=== PATIENT | female | born 1965 | race Caucasian/White ===

== ENCOUNTER 2018-06-24 08:15 | Emergency (ER) | payer OTHER ==
[2018-06-24 09:21] LABS: Absolute Lymphocytes (CBC) 4.2 K/uL (0.7-4.9); Absolute Monocytes 1.2 K/uL (0.1-1.3); Basophils % 0.5 % (0-1.3); Eosinophils % 0.3 % (0-4.4); Lymphocytes % 22.6 % (15.3-44.8); MPV 9.5 fL (7.6-11.3); Monocytes % 6.4 % (3.3-12.3); RBC Red Blood Cell Count 4.46 M/uL (3.86-4.86)
[2018-06-24] MEDS ORDERED: VANCOMYCIN 1 GM/250 ML BAG ONE (09:25)
[2018-06-24] MEDS ORDERED: CEFTRIAXONE/SWI 1gm 1 GM/10 ML SYR ONE (09:25)
[2018-06-24 09:44] LABS: Potassium 3.4 mmol/L (3.5-5.1)
--- NOTE | 2018-06-24 11:01 | EDPHYS ---
Physician Documentation [facility] Name: Mary Villarreal Age: 52 yrs Sex: Female : 1965 Arrival Date: 06/24/2018 Time: 08:21 Bed 15 Private MD: ED Physician Miko Briggs HPI: 06/24 10:33 This 52 yrs old Female presents to ER via Ambulatory with complaints of Eye gs Swelling, Redness of Eye. 10:33 The patient is experiencing pain, redness. Onset: The symptoms/episode began/occurred 4 gs day(s) ago, and became worse. Duration: the symptoms are continuous. Aggravated by blinking. Associated signs and symptoms: Pertinent negatives: fever. Severity of symptoms: At their worst the symptoms were severe in the emergency department the symptoms are unchanged. 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 - Social history:: Smoking status: Patient/guardian denies using tobacco. - Ebola Screening: : Patient negative for fever greater than or equal to 101.5 degrees Fahrenheit, and additional compatible Ebola Virus Disease symptoms Patient denies exposure to infectious person Patient denies travel to an Ebola-affected area in the 21 days before illness onset No symptoms or risks identified at this time. ROS: 10:33 All other systems are negative. gs Exam: 10:33 ENT: Nares patent. No nasal discharge, no septal abnormalities noted. Tympanic gs membranes are normal and external auditory canals are clear. Oropharynx with no redness, swelling, or masses, exudates, or evidence of obstruction, uvula midline. Mucous membranes moist. Neck: Trachea midline, no thyromegaly or masses palpated, and no cervical lymphadenopathy. Supple, full range of motion without nuchal rigidity, or vertebral point tenderness. No Meningismus. Chest/axilla: Normal chest wall appearance and motion. Nontender with no deformity. No lesions are appreciated. Respiratory: Lungs have equal breath sounds bilaterally, clear to auscultation and percussion. No rales, rhonchi or wheezes noted. No increased work of breathing, no retractions or nasal flaring. Abdomen/GI: Soft, non-tender, with normal bowel sounds. No distension or tympany. No guarding or rebound. No evidence of tenderness throughout. Back: No spinal tenderness. No costovertebral tenderness. Full range of motion. Skin: Warm, dry with normal turgor. Normal color with no rashes, no lesions, and no evidence of cellulitis. MS/ Extremity: Pulses equal, no cyanosis. Neurovascular intact. Full, normal range of motion. Neuro: Awake and alert, GCS 15, oriented to person, place, time, and situation. Cranial nerves II-XII grossly intact. Motor strength 5/5 in all extremities. Sensory grossly intact. Cerebellar exam normal. Normal gait. 10:33 Constitutional: The patient appears alert, awake. 10:33 Head/face: Noted is swelling, that is moderate, of the left eye. 10:33 Eyes: Periorbital structures: cellulitis, erythema, swelling, that is marked, on the left supraorbital ridge, left upper eyelid, medial canthus of left eye, lateral canthus of left eye and left lower eyelid, Conjunctiva: injected, in the left eye. 10:33 Cardiovascular: Rate: tachycardic, Rhythm: regular, Pulses: no pulse deficits are appreciated. 10:42 Eyes: Periorbital structures: erythema, that is mild, on the right supraorbital ridge, gs swelling, that is mild, on the right supraorbital ridge. Vital Signs: 08:37 BP 128 / 63; Pulse 119; Resp 16 S; Temp 98.3(O); Pulse Ox 99% on R/A; Weight 87.54 kg; iw Height 5 ft. 3 in. (160.02 cm); Pain 0/10; 10:10 BP 115 / 71; Pulse 115; Resp 16; Pulse Ox 99% ; Pain 0/10; jl7 11:44 BP 146 / 63; Pulse 115; Resp 17 S; Pulse Ox 100% on R/A; jl7 08:37 Body Mass Index 34.19 (87.54 kg, 160.02 cm) iw MDM: 08:56 Patient medically screened. gs 10:52 Differential diagnosis: Acute iritis of periorbital cellulitis,orbital gs celluliis,dacrocystitis,abscess. Data reviewed: vital signs, nurses notes. Counseling: I had a detailed discussion with the patient and/or guardian regarding: the historical points, exam findings, and any diagnostic results supporting the discharge/admit diagnosis, the need to transfer to another facility. Response to treatment: the patient's symptoms have mildly improved after treatment, and as a result, I will administer antibiotics administer IV fluids. 06/24 09:00 Order name: CBC with Diff 06/24 09:00 Order name: Basic Metabolic Panel; Complete Time: 10:29 gs 06/24 09:00 Order name: Blood Culture* gs 06/24 09:01 Order name: CBC with Automated Diff; Complete Time: 10:29 EDMS 06/24 10:25 Order name: Orbits W/Cont; Complete Time: 11:45 EDMS Administered Medications: 09:20 Drug: Rocephin 1 grams Route: IV; Rate: calculated rate; Site: left antecubital; jl7 09:23 Follow up: Response: No adverse reaction; IV Status: Completed infusion jl7 09:25 Drug: vancoMYCIN 1 grams Route: IVPB; Infused Over: 2 hrs; Site: left antecubital; jl7 11:25 Follow up: Response: No adverse reaction; IV Status: Completed infusion jl7 09:48 Not Given (Duplicate Order): Rocephin - (cefTRIAXone) 1 grams IVPB once over 30 mins; jl7 (mix in 50 mL NS) Disposition: 06/24/18 11:01 Transfer ordered to [facility]. Diagnosis is Cellulitis of left orbit. - Reason for transfer: Higher level of care. - Accepting physician is hal. - Condition is Stable. - Problem is new. - Symptoms are unchanged. Critical care time excluding procedures: 10:52 Critical care time: Bedside Care: 10 minutes, Consultation: 10 minutes, Family gs Intervention: 10 minutes. Total time: 30 minutes Signatures: Dispatcher [employer] EDFL Ledy Cevallos RN RN iw Leal, Jahala, RN RN jl7 Starr, Gregory, MD MD gs Corrections: (The following items were deleted from the chart) 10:25 10:15 Orbit W/Wo ordered. EDFL EDMS 12:45 11:01 06/24/2018 11:01 Transfer ordered to [facility]. Diagnosis is jl7 Cellulitis of left orbit. Reason for transfer: Higher level of care. Accepting physician is hal. Condition is Stable. Problem is new. Symptoms are unchanged. gs
--- NOTE | 2018-06-24 11:01 | ER ---
Nurse's Notes [facility] Name: Mary Villarreal Age: 52 yrs Sex: Female : 1965 Arrival Date: 06/24/2018 Time: 08:21 Bed 15 Private MD: Diagnosis: Cellulitis of left orbit Presentation: 06/24 08:33 Presenting complaint: Patient states: was diagnosed with seasonal allergies and iw conjunctivitis in left eye on Tuesday, went to eye doctor on was diagnosed with cellulitis, started on TobraDex and Bactrim, redness and swelling has gotten worse, crusting and drainage noted, denies fever, redness moving to right eye. Transition of care: patient was not received from another setting of care. Onset of symptoms was June 20, 2018. Risk Assessment: Do you want to hurt yourself or someone else? Patient reports no desire to harm self or others. Initial Sepsis Screen: Does the patient meet any 2 criteria? HR > 90 bpm. Does the patient have a suspected source of infection?. Care prior to arrival: antibiotics. 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 - Social history:: Smoking status: Patient/guardian denies using tobacco. - Ebola Screening: : Patient negative for fever greater than or equal to 101.5 degrees Fahrenheit, and additional compatible Ebola Virus Disease symptoms Patient denies exposure to infectious person Patient denies travel to an Ebola-affected area in the 21 days before illness onset No symptoms or risks identified at this time. Screenin:51 Abuse screen: Denies threats or abuse. Denies injuries from another. Nutritional jl7 screening: No deficits noted. Tuberculosis screening: No symptoms or risk factors identified. Fall Risk None identified. Assessment: 08:51 General: Appears in no apparent distress. uncomfortable, Behavior is calm, cooperative, jl7 appropriate for age. Pain: Denies pain. Neuro: Level of Consciousness is awake, alert, obeys commands, Oriented to person, place, time, situation. Cardiovascular: Patient's skin is warm and dry. Respiratory: Airway is patent Respiratory effort is even, unlabored, Respiratory pattern is regular, symmetrical. GI: No signs and/or symptoms were reported involving the gastrointestinal system. : No signs and/or symptoms were reported regarding the genitourinary system. EENT: Eyes Sclera/Cornea are reddened in left eye. Derm: Skin is pink, warm \T\ dry. Redness and swelling noted to left cheek and eye, appears to be spreading to right check and eye. 10:10 Reassessment: Patient appears in no apparent distress at this time. No changes from jl7 previously documented assessment. Patient and/or family updated on plan of care and expected duration. Pain level reassessed. Patient is alert, oriented x 3, equal unlabored respirations, skin warm/dry/pink. 11:30 Reassessment: Patient appears in no apparent distress at this time. Patient and/or 7 family updated on plan of care and expected duration. Pain level reassessed. Patient is alert, oriented x 3, equal unlabored respirations, skin warm/dry/pink. 11:45 Reassessment: Dr. Briggs at bedside discussing plan of care. jl7 12:44 Reassessment: EMS at bedside for transfer to [facility]. jl7 Vital Signs: 08:37 BP 128 / 63; Pulse 119; Resp 16 S; Temp 98.3(O); Pulse Ox 99% on R/A; Weight 87.54 kg; iw Height 5 ft. 3 in. (160.02 cm); Pain 0/10; 10:10 BP 115 / 71; Pulse 115; Resp 16; Pulse Ox 99% ; Pain 0/10; jl7 11:44 BP 146 / 63; Pulse 115; Resp 17 S; Pulse Ox 100% on R/A; jl7 08:37 Body Mass Index 34.19 (87.54 kg, 160.02 cm) ED Course: 08:21 Patient arrived in ED. rg4 08:37 Triage completed. iw 08:37 Arm band placed on. iw 08:45 Stef Iqbal RN is Primary Nurse. jl7 08:48 Miko Briggs MD is Attending Physician. gs 08:51 Patient has correct armband on for positive identification. Bed in low position. Call jl7 light in reach. Side rails up X 1. Pulse ox on. NIBP on. 09:00 Initial lab(s) drawn, by me, sent to lab. Inserted saline lock: 22 gauge in left jl7 antecubital area, using aseptic technique. Blood collected. 09:42 initiated a transfer with Farheen at the [facility] transfer center. eb 09:51 Farheen from [facility] transfer center called to let us know she has paged the eb tire trucker ironer or presser and is waiting for a call back. 10:[address] Finn the tire trucker ironer or presser for [facility] for patient transfer eb consultation. 10:[address] Tian the hospitalist from [facility] with Dr. Briggs for patient eb transfer consultation. 10:42 CT completed. Patient tolerated procedure well. Patient moved back from CT. mw3 10:43 Orbits W/Cont In Process Unspecified. EDMS 10:49 administrative approval given by Farheen Pérez RN, patient will be going to 22 tow eb bed 2247, Dr. Mireles has accepted the patient in transfer/ report to be called to the transfer center at [phone]. 12:44 No provider procedures requiring assistance completed. Patient transferred, IV remains jl7 in place. intact, No redness/swelling at site. Administered Medications: 09:20 Drug: Rocephin 1 grams Route: IV; Rate: calculated rate; Site: left antecubital; jl7 09:23 Follow up: Response: No adverse reaction; IV Status: Completed infusion jl7 09:25 Drug: vancoMYCIN 1 grams Route: IVPB; Infused Over: 2 hrs; Site: left antecubital; jl7 11:25 Follow up: Response: No adverse reaction; IV Status: Completed infusion jl7 09:48 Not Given (Duplicate Order): Rocephin - (cefTRIAXone) 1 grams IVPB once over 30 mins; jl7 (mix in 50 mL NS) Outcome: 11:01 ER care complete, transfer ordered by MD. adams 12:43 Transferred by ground EMS to [facility], Transfer form completed. jl7 X-rays sent w/ patient. 12:43 Condition: stable 12:43 Discharge instructions given to patient, family, Instructed on the need for transfer, Demonstrated understanding of instructions. 12:45 Patient left the ED. jl7 Signatures: Dispatcher [employer] EDLedy Leigh, RN Lizbeth Quiles rg4 Stef Iqbal RN RN jl7 Miko Briggs MD MD gs Botello, Elizabeth eb Willis, Michelle 3
--- NOTE | 2018-06-24 11:32 | RAD REPORT ---
EXAM DESCRIPTION: CT - ORBC CLINICAL HISTORY: orbital cellulitis Pain and swelling left eye COMPARISON: No comparisons TECHNIQUE: Axial 2 mm thick images of the face were obtained with sagittal and coronal reconstructio n images. All CT scans are performed using dose optimization technique as appropriate and may include automated exposure control or mA/KV adjustment according to patient size. FINDINGS: Significant edema and inflammatory changes are seen involving the preseptal space on the l eft.There is no evidence of extension of the inflammatory material posteriorly. Retrobulbar fat appea rs preserved.No vitreous abnormality is seen. No right-sided preseptal or orbital cellulitis findings . Mild mucosal thickening affects the frontal, ethmoid and left maxillary sinus.The mastoid air cells a re clear. Skullbase is intact. IMPRESSION: Prominent edema inflammatory changes are seen in the preseptal region on the left most c ompatible with preseptal cellulitis. There is no evidence of orbital cellulitis at this time.
== END 2018-06-24 12:45 | disposition short-term general hospital (02) ==
LOC: ER 08:15
DX: H05.012 Cellulitis of left orbit (principal); Z88.5 Allergy status to narcotic agent
CPT/HCPCS: 36415; 70481; 80048; 85025; 87040; 96365; 96366; 96375; 99285; J0696; J3370; Q9967